=== PATIENT | female | born 1990 | race American Indian/Alaskan Native ===

== ENCOUNTER 2017-10-12 13:08 | Outpatient (CLI) | payer OTHER ==
--- NOTE | 2017-10-12 18:39 | Magnetic Resonance Report ---
FINAL REPORT EXAM: MR PELVIS WO/W CON HISTORY: PELVIN PAIN, BLEEDING TECHNIQUE: Multiplanar MRI of the pelvis. 12 mL MultiHance IV. PRIORS: None. FINDINGS: Uterus measures approximately 5.1 x 3.5 x 5.1 cm. Endometrium within normal limits. Large mass extending off uterine fundus to approximate umbilical level measures approximately 14 x 8.5 x 12.5 cm, with heterogeneous isointense T1 and heterogeneous dark T2 signal intensity, with local mass effect. Right ovary suboptimally visualized, but grossly unremarkable. Probable follicular or functional cystic change in left ovary measuring up to 2 cm. Visualized bowel grossly unremarkable. Very small amount of nonspecific, free fluid in the pelvis. No discrete abscess. Abdominal aorta non-aneurysmal. Bony pelvis grossly unremarkable. IMPRESSION: 1. Large, probable degenerating fibroid extending cephalad off uterine fundus as reported. Clinical correlation and followup suggested. 2. Possible physiologic cystic change in the left ovary, and sequelae of ovarian follicle or cyst rupture.
== END 2017-10-12 13:09 | disposition home or self-care (01) ==
LOC: MRI 13:08
PROVIDERS: ATTEND Radiology Vascular & Interventional Radiology
DX: N93.9 Abnormal uterine and vaginal bleeding, unspecified (principal); R10.2 Pelvic and perineal pain
CPT/HCPCS: 72197; A9577

== ENCOUNTER 2018-01-12 01:43 | Observation (INO) | payer MEDICAID, OTHER ==
[2018-01-12] MEDS ORDERED: NACL 0.9% 1000 ML 1,000 ML IV ONE (04:42)
[2018-01-12 05:59] LABS: Basophils % (Auto) 0.2 % (0.0-1.8); Eosinophils % (Auto) 0.1 % (0.0-4.3); Hematocrit 38.2 % (30.3-42.9); Hemoglobin 12.9 gm/dl (10.1-14.3); Lymphocytes % (Auto) 7.9 % (13.4-35.0); Mean Corpuscular HGB Conc 34 % (30-34); Mean Corpuscular Hemoglobin 31 pg (28-32); Mean Corpuscular Volume 91 fl (79-97); Monocytes # (Auto) 0.9 K/mm3 (0.0-0.8); Monocytes % (Auto) 7.3 % (0.0-7.3); Platelet Count 293 K/mm3 (140-440); Red Blood Count 4.21 M/mm3 (3.65-5.03); Red Cell Distribution Width 13.9 % (13.2-15.2)
[2018-01-12 06:46] LABS: Alanine Aminotransferase 14 units/L (7-56); Albumin 3.7 g/dL (3.9-5); BUN/Creatinine Ratio 8; Blood Urea Nitrogen 4 mg/dL (7-17); Calcium 9.7 mg/dL (8.4-10.2); Hemolysis Index 0
[2018-01-12 06:49] LABS: Bilirubin,Urine NEG (Negative); Blood,Urine NEG (Negative); Color,Urine Amber (Yellow); Mucus,Urine 3+ /HPF
[2018-01-12] MEDS ORDERED: VISTARIL PO ONE (06:49)
--- NOTE | 2018-01-12 07:23 | Discharge Summary ---
Providers - Providers Primary care physician: ENTERPRISE SYSTEMS ADMINISTRATOR Hospitalization Condition: Good Hospital course: This is a 27-year-old female 1 para 0 who currently has an intrauterine at 15 weeks and 2 days. This is complicated by a large uterine fibroids. She presented to her 14 week visit on 01/08/2018c /o tightening of the stomach, lower abdo and middle back pain, pt states when she was 8w she had a fibroid measuring 10cm, was told fibroid now measures 13x16 cm at [facility] with [facility] 12/20/2017 . Since that this pain is coming progressively worse. Of note at that visit she had a fundal height of 26 cm. She denies vaginal bleeding or leaking fluid. Her exam today is consistent with a fundal height of 26-28 weeks gestational age. Her cervix was closed and thick. There was no blood in the vagina or leaking fluid. She had no CVA or flank tenderness. FHTs auscultated by the RN were 160s. Patient was given orders for an IV fluid bolus because her urine was kasie and appeared to be concentrated. In spite of that elevated WBCs that may be associated with and the tachycardia that's probably due to patient's pain she is no obvious evidence of infection associated with this at this time. Disposition: DC-01 TO HOME OR SELFCARE - Discharge Diagnoses (1) 15 weeks gestation of Status: Acute (2) Uterine fibroid complicating care, baby not yet delivered Status: Acute (3) Pelvic pain Status: Acute (4) Back pain affecting in second trimester Status: Acute Core Measure Documentation - Palliative Care Palliative Care/ Comfort Measures: Not Applicable - Core Measures Any of the following diagnoses?: none Exam - Constitutional Vitals: Temp Pulse Resp BP Pulse Ox 97.7 F 120 H 12 115/79 100 01/12/18 01:43 01/12/18 01:43 01/12/18 01:43 01/12/18 01:43 01/12/18 01:43 General appearance: Present: mild distress, well-nourished - Respiratory Respiratory effort: normal - Extremities Extremities: no ischemia, No edema - Abdominal General gastrointestinal: Present: soft, non-distended Female genitourinary: Present: other (no vulvar or vaginal lesions noted. Cervix was closed by speculum exam as well as bimanual exam. Enlarged uterus.) - Integumentary Integumentary: Present: clear, warm, dry - Psychiatric Psychiatric: appropriate mood/affect, intact judgment & insight Plan Activity: other (No sex, no exercise) Weight Bearing Status: Full Weight Bearing Diet: regular Special Instructions: no heavy lifting (>25#) Additional Instructions: Start using a belt. Follow up with: PRIMARY CARE,MD [Primary Care Provider] - 7 Days JEREMIE GOODRICH CNM [Advanced Practice Nurse] - ([place] office Sunday at 1500) Forms: Work/School Release Form
--- NOTE | 2018-01-12 10:13 | History and Physical Report ---
History of Present Illness Date of examination: 01/12/18 Date of admission: 01/12/18 Chief complaint: abdominal pain History of present illness: Pt initially was seen in ER by due to having pain. Mcgee believed to be due to fibroids. Pain improved with meds and she was to be d/c home but was noted to have pulse persistenly >120. Pt has gotten 1liter of fluid as per RN since being in the ER but admits to not eating or drinking since 11pm last night. She has not fevers, no chills, and currently has not pain. She was noted to have low sodium (just slightly) and potassium on inital labs(again just slightly). Decision made to admit pt and monitor due to elevated pulse. Will also obtain EKG and ECHO while admitted. Pt will also have TSH drawn upon admission and CMP repeated in the am after replacement with fluids and po K+. Plan of care d/w pt and all questions were addressed and answered. 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 of genital herpes: no Rash, Viral, or Febrile illness since last LMP? no Varicella/Chicken Pox Status: Previous Disease Genetic History Congenital Heart Defect: Mom: no Dad: unknown Juan Carlos Disease: Mom: no Dad: unknown Thalassemia Mom: no Dad: unknown Neural Tube Defect Mom: no Dad: unknown Down's Syndrome Mom: no Dad: unknown Yuriy-Sachs Mom: no Dad: unknown Sickle Cell Disease/Trait Mom: no Dad: unknown Hemophilia Mom: no Dad: unknown Muscular Dystrophy Mom: no Dad: unknown Cystic Fibrosis Mom: no Dad: unknown [employer] Chorea Mom: no Dad: unknown Mental Retardation Mom: no Dad: unknown Fragile X Mom: no Dad: unknown Other Genetic/Chromosomal Disorder Mom: no Dad: unknown Child w/other defect Mom: no Dad: unknown Enviromental Exposures Xray Exposure: yes Occupational Exposure to Children: none Comments: MRI- she thinks during the early Active Medications (reviewed today): GENERESS FE 0.8-25 MG-MCG ORAL TABLET CHEWABLE (Norethin-Eth Estradiol-Fe) 1 po qd IBUPROFEN 800 MG ORAL TABLET (IBUPROFEN) 1 po TID (PRN) Current Allergies (reviewed today): * BACTRIM (Critical) Past History Past Medical History: other (fibroid uterus) Past Surgical History: denies: no surgical history DOCUMENT COORDINATOR History: denies: abnormal PAP smear Social history: no significant social history, single - Obstetrical History Expected Date of Delivery: 07/04/18 Actual Gestation: 15 Week(s) 2 Day(s) : 1 Medications and Allergies Allergies Allergy/AdvReac Type Severity Reaction Status Date / Time sulfamethoxazole Allergy Rash Verified 01/12/18 06:51 [From Bactrim] trimethoprim [From Bactrim] Allergy Rash Verified 01/12/18 06:51 Review of Systems All systems: negative - Vital Signs Vital signs: Vital Signs Temp Pulse Resp BP Pulse Ox 97.7 F 120 H 12 115/79 100 01/12/18 01:43 01/12/18 01:43 01/12/18 01:43 01/12/18 01:43 01/12/18 01:43 Temp Pulse Resp BP Pulse Ox 99.2 F 123 H 21 133/83 98 01/12/18 07:34 01/12/18 07:34 01/12/18 07:34 01/12/18 07:30 01/12/18 07:34 - Physical Exam Cardiovascular: Other (tachycardia) Lungs: Positive: Normal air movement Abdomen: Positive: soft, other (uterus palapted above the umbilicus). Negative : distention, tenderness - Obstetrical FHR: auscultation normal Results Result Diagrams: 01/12/18 05:02 01/12/18 05:02 Abnormal lab results 01/12/18 01/12/18 01/12/18 Range/Units 05:02 05:02 05:56 WBC 12.5 H (4.5-11.0) K/mm3 Lymph % (Auto) 7.9 L (13.4-35.0) % Lymph # 1.0 L (1.2-5.4) K/mm3 [place] # 0.9 H (0.0-0.8) K/mm3 Seg Neutrophils % 84.5 H (40.0-70.0) % Seg Neutrophils # 10.6 H (1.8-7.7) K/mm3 Sodium 134 L (137-145) mmol/L Potassium 3.3 L (3.6-5.0) mmol/L Chloride 94.7 L (98-107) mmol/L Carbon Dioxide 21 L (22-30) mmol/L BUN 4 L (7-17) mg/dL Creatinine 0.5 L (0.7-1.2) mg/dL Alkaline Phosphatase 134 H (35-129) units/L Albumin 3.7 L (3.9-5) g/dL Urine WBC (Auto) 18.0 H (0.0-6.0) /HPF All other labs normal. Assessment and Plan - Patient Problems (1) Hypokalemia Current Visit: Yes Status: Acute Plan to address problem: -admit -iv hydration -replace po (2) 15 weeks gestation of Current Visit: Yes Status: Acute (3) Back pain affecting in second trimester Current Visit: Yes Status: Acute (4) Uterine fibroid complicating care, baby not yet delivered Current Visit: Yes Status: Acute (5) Tachycardia Current Visit: Yes Status: Acute Plan to address problem: -EKC, ECHO -pt has no sx at this time
[2018-01-12] MEDS ORDERED: TYLENOL PO PRN (10:22)
[2018-01-12] MEDS ORDERED: COLACE PO PRN (10:22)
[2018-01-12] MEDS ORDERED: ZOFRAN IV PRN (10:22)
[2018-01-12] MEDS ORDERED: AMBIEN PO PRN (10:22)
[2018-01-12] MEDS ORDERED: K-DUR PO ONE ×2 (11:00→12:12)
[2018-01-12] MEDS: LACTATED RINGERS 1,000 ML IV SCH (17:00)
[2018-01-13] MEDS: LACTATED RINGERS 1,000 ML IV SCH (06:37)
[2018-01-13 07:54] LABS: BUN/Creatinine Ratio 6; Blood Urea Nitrogen 3 mg/dL (7-17); Calcium 9.1 mg/dL (8.4-10.2); Hemolysis Index 0
[2018-01-13] MEDS ORDERED: PRENATAL VITAMIN PO SCH (10:00)
--- NOTE | 2018-01-13 11:16 | Progress Note ---
Assessment and Plan - Patient Problems (1) Hypokalemia Current Visit: Yes Status: Resolved Plan to address problem: -resolved (2) 15 weeks gestation of Current Visit: Yes Status: Acute (3) Back pain affecting in second trimester Current Visit: Yes Status: Resolved (4) Uterine fibroid complicating care, baby not yet delivered Current Visit: Yes Status: Acute (5) Tachycardia Current Visit: Yes Status: Acute Plan to address problem: -still present but in thelow 100s. Greatly improved Subjective Date of service: 01/13/18 Principal diagnosis: HD #2 s/p admission for tachycardia and hypokalemia Interval history: +K and sodium are normal this am. Pt has no pain and no c/o. ECHO was wnl. Results were d/w pt. TSH also normal. Pulse greatly improved with hydration and resting. Pt was encouraged to con't this at home and keep scheduled apt in office. Pt expressed understanding and questions were addressed and answered. Objective - Constitutional Vitals: Vital Signs - 12hr 01/13/18 01/13/18 01/13/18 00:00 05:26 07:30 Temperature 98.2 F 98.9 F 99.2 F Pulse Rate 106 H 95 H 106 H Respiratory 20 20 20 Rate Blood Pressure 109/62 114/76 101/56 [Left] General appearance: Present: no acute distress - EENT ENT: hearing intact - Neck Neck: supple - Respiratory Respiratory effort: normal - Breasts Breasts: deferred - Cardiovascular Rhythm: regular Heart Sounds: Present: S1 & S2 - Gastrointestinal General gastrointestinal: Present: soft, other (fibroid uterus palpated). Absent: non-tender, tender, non-distended Rectal Exam: deferred - Genitourinary Female genitourinary: deferred - Labs CBC & Chem 7: 01/12/18 05:02 01/13/18 07:15 Labs: Abnormal lab results 01/13/18 Range/Units 07:15 BUN 3 L (7-17) mg/dL Creatinine 0.5 L (0.7-1.2) mg/dL
--- NOTE | 2018-01-13 11:17 | Discharge Summary ---
Providers - Providers Date of Admission: 01/12/18 10:22 Date of discharge: 01/13/18 Attending physician: KULWINDER KIMBALL Primary care physician: INTERNATIONAL MANAGER Hospitalization Reason for admission: other (tachycardia, hypokalemia, hyponatremia) Hospital course: Pt admitted for the above and had supportive therapy and work up for elevate heart rate. Echo was normal. Pt electrolytes have been correctly. Back pain is resolved. No s/sc of SAB at this time. Condition at discharge: Good Disposition: DC-01 TO HOME OR SELFCARE - Discharge Diagnoses (1) Hypokalemia Status: Resolved (2) 15 weeks gestation of Status: Acute (3) Back pain affecting in second trimester Status: Resolved (4) Uterine fibroid complicating care, baby not yet delivered Status: Acute (5) Tachycardia Status: Acute Plan - Provider Discharge Summary Diet: routine Instructions: routine Additional instructions: [] Smoking cessation referral if applicable(refer to patient education folder for contact #) [] Refer to [facility] Booklet Call your doctor immediately for: * Fever > 100.5 * Heavy vaginal bleeding ( >1 pad per hour) * Severe persistent headache * Shortness of breath * Reddened, hot, painful area to leg or breast * Drainage or odor from incision. * Keep incision clean and dry at all times and follow doctor's instructions regarding bathing/showering - Follow up plan Follow up: JEREMIE GOODRICH CNM [Advanced Practice Nurse] - ([place] office Sunday at 1500) PRIMARY CARE, [Primary Care Provider] - 7 Days Forms: Work/School Release Form
[2018-01-13 14:03] VITALS: BP 123/85
== END 2018-01-13 13:45 | disposition home or self-care (01) ==
LOC: ED 01:43 → OB 10:22 → INTOOBSV 10:22
PROVIDERS: ADMIT Obstetrics & Gynecology; ATTEND Obstetrics & Gynecology
DX: O99.282 Endocrine, nutritional and metabolic diseases complicating pregnancy, second trimester (principal); E87.6 Hypokalemia; O26.892 Other specified pregnancy related conditions, second trimester; R10.2 Pelvic and perineal pain; R00.0 Tachycardia, unspecified; O99.89 Other specified diseases and conditions complicating pregnancy, childbirth and the puerperium; M54.9 Dorsalgia, unspecified; O34.12 Maternal care for benign tumor of corpus uteri, second trimester; D25.9 Leiomyoma of uterus, unspecified; Z3A.15 15 weeks gestation of pregnancy
CPT/HCPCS: 36415; 80048; 80053; 81001; 84443; 84703; 85025; 93005; 93010; 93306; 96360; 96361; G0378; J7030; J7120; 99285; Q0177